=== PATIENT | female | born 1950 | race Caucasian/White ===

== ENCOUNTER → 2018-02-23 | Outpatient (CLI) | payer MEDICARE | END | disposition home or self-care (01) | LOC: CFH 13:11 | PROVIDERS: ATTEND Family Medicine | DX: N64.4 Mastodynia (principal); N63.10 Unspecified lump in the right breast, unspecified quadrant | CPT/HCPCS: 77066 ==

== ENCOUNTER → 2018-03-16 | Outpatient (CLI) | payer MEDICARE ==
[~2018-03-16] MED LIST: LIDOCAINE 1%, 20ML ONE; LIDOCAINE 1%-EPI 1:100K, 30ML ONE; SODIUM BICARBONATE 4.0%, 5ML ONE
== END | disposition home or self-care (01) ==
LOC: CFH 10:55
PROVIDERS: ATTEND Family Medicine
DX: N63.10 Unspecified lump in the right breast, unspecified quadrant (principal); R92.8 Other abnormal and inconclusive findings on diagnostic imaging of breast
CPT/HCPCS: 19083; 77065; 88305; J3490

== ENCOUNTER → 2018-03-29 | Outpatient (CLI) | payer MEDICARE ==
[~2018-03-29] MED LIST changes: +GADOBUTROL 10 MMOL/10 ML VIAL ONE; -LIDOCAINE 1%, 20ML ONE; -LIDOCAINE 1%-EPI 1:100K, 30ML ONE; -SODIUM BICARBONATE 4.0%, 5ML ONE
== END | disposition home or self-care (01) ==
LOC: CFH 13:55
PROVIDERS: ATTEND Family Medicine
DX: C50.811 Malignant neoplasm of overlapping sites of right female breast (principal)
CPT/HCPCS: A9585; C8908

== ENCOUNTER → 2018-04-16 | Outpatient (CLI) | payer MEDICARE ==
[~2018-04-16] MED LIST changes: +ALBU8.5H8 INH; +AMLO2.5T3 PO; +CHOL10003 PO; +CITA10TA4 PO; +CYAN10005 PO; -GADOBUTROL 10 MMOL/10 ML VIAL ONE; +HYDR12.58 PO; +MONT10TA9 PO; +MULT-658 PO; +OMEG-170 PO; +OMEP-110 PO; +OXYC-302 PO; +ROSU20TA PO; +vitamin c PO
[2018-04-16 13:02] LABS: BASOPHILS # (AUTO) 0.12 x10^3/uL (0-0.1); BASOPHILS % (AUTO) 1 % (0-1); EOSINOPHILS # (AUTO) 0.23 x10^3/uL (0-0.4); EOSINOPHILS % (AUTO) 3 % (1-7); LYMPHOCYTES # (AUTO) 2.47 x10^3/uL (1-3.4); LYMPHOCYTES % (AUTO) 30 % (22-44); MD NO; MEAN CORPUSCULAR HEMOGLOBIN 32.6 pg (27.0-34.8); MEAN CORPUSCULAR HGB CONC 34.3 g/dL (32.4-35.8); MEAN PLATELET VOLUME 8.6 fL (7.4-10.4); MONOCYTES # (AUTO) 0.89 x10^3/uL (0.2-0.8); MONOCYTES % (AUTO) 11 % (2-9); NEUTROPHILS # (AUTO) 4.61 x10^3/uL (1.8-6.8); NEUTROPHILS % (AUTO) 55 % (42-75); PLATELET COUNT 238 x10^3/uL (130-400); RED BLOOD COUNT 4.38 x10^6/uL (3.82-5.3); RED CELL DISTRIBUTION WIDTH 13.6 % (9.6-15.2)
[2018-04-16 13:14] LABS: ALANINE AMINOTRANSFERASE 39 U/L (12-78); ALBUMIN 3.5 g/dL (3.4-5.0); ANION GAP 8 mmol/L (5-15); CALCIUM 9.3 mg/dL (8.5-10.1); CHLORIDE 103 mmol/L (98-107)
[2018-04-16 13:17] LABS: ALKALINE PHOSPHATASE 43 U/L (45-117); BILIRUBIN,TOTAL 1.2 mg/dL (0.2-1.0); CREATININE 1.01 mg/dL (0.55-1.02); TOTAL PROTEIN 7.5 g/dL (6.4-8.2)
== END | disposition home or self-care (01) ==
LOC: STAR 11:12
PROVIDERS: ATTEND Surgery
DX: Z01.818 Encounter for other preprocedural examination (principal); C50.911 Malignant neoplasm of unspecified site of right female breast
CPT/HCPCS: 36415; 80053; 85025; 93005

== ENCOUNTER → 2018-04-20 | Outpatient (CLI) | payer MEDICARE | END | disposition home or self-care (01) | LOC: ROC 09:17 | PROVIDERS: ATTEND Radiology Radiation Oncology | DX: C50.911 Malignant neoplasm of unspecified site of right female breast (principal) | CPT/HCPCS: 99214; G0463 ==

== ENCOUNTER 2018-04-23 13:15 | Observation (INO) | payer MEDICARE ==
[2018-04-16 12:01] VITALS: BP 146/83
[~2018-04-23] VITALS: Ht 175.3 cm; Wt 88.9 kg
[~2018-04-23 13:15] MED LIST changes: -OXYC-302 PO
[2018-04-23] MEDS ORDERED: LACTATED RINGERS 1,000 ML IV SCH ×2 (13:56→21:30)
[2018-04-23] MEDS ORDERED: ACETAMINOPHEN 500 MG TABLET PO ONE (14:00)
[2018-04-23] MEDS ORDERED: ONDANSETRON ODT 8 MG PO ONE (14:00)
[2018-04-23] MEDS ORDERED: OXYcodone IR 5MG TABLET PO ONE (14:00)
[2018-04-23] MEDS ORDERED: GABAPENTIN 300 MG CAPSULE PO ONE (14:00)
[2018-04-23] MEDS ORDERED: LIDOCAINE-MPF 2%, 2ML ONE (14:51)
[2018-04-23] MEDS ORDERED: MIDAZOLAM 1 MG/ML, 2ML ONE (17:02)
[2018-04-23] MEDS ORDERED: FENTANYL PF 250 MCG/5ML ONE (17:02)
[2018-04-23] MEDS ORDERED: BACITRACIN 50,000 UNIT ONE (17:09)
[2018-04-23] MEDS ORDERED: CEFAZOLIN 1,000 MG ONE (17:09)
[2018-04-23] MEDS ORDERED: GENTAMICIN 80 MG/2 ML ONE (17:09)
[2018-04-23] MEDS ORDERED: METHYLENE BLUE 10 MG/ML 10ML ONE (17:09)
[2018-04-23] MEDS ORDERED: SCOPOLAMINE PATCH, 1.5MG PATCH.TD72 TD ONE (17:16)
[2018-04-23] MEDS ORDERED: ROCURONIUM 10MG/ML,5ML ONE (17:35)
[2018-04-23] MEDS ORDERED: GLYCOPYRROLATE 0.2MG/1ML, 5ML ONE (17:35)
[2018-04-23] MEDS ORDERED: EPHEDRINE 50 MG/ML, 1ML ONE (17:35)
[2018-04-23] MEDS ORDERED: NEOSTIGMINE 1 MG/ML, 10ML ONE (17:35)
[2018-04-23] MEDS ORDERED: PROPOFOL 10 MG/ML, 20ML ONE (17:35)
[2018-04-23] MEDS ORDERED: DEXAMETHASONE 4 MG/ML, 1ML ONE (17:35)
[2018-04-23] MEDS ORDERED: ISOSULFAN BLUE 10 MG/ML, 5ML IV ONE (17:50)
[2018-04-23] MEDS ORDERED: HALOPERIDOL 5 MG/ML IV PRN (18:30)
[2018-04-23] MEDS ORDERED: FENTANYL PF 100 MCG/2ML IV PRN ×2 (18:30→22:00)
[2018-04-23] MEDS ORDERED: ALBUTEROL SULFATE 2.5 MG/3 ML NPPB PRN ×2 (18:30→22:30)
[2018-04-23] MEDS ORDERED: HYDROmorphone 1 MG/ML, 1ML IV PRN (18:30)
[2018-04-23] MEDS ORDERED: LORazepam 2 MG/ML, 1ML IVPush PRN (18:30)
[2018-04-23] MEDS ORDERED: hydrALAzine 20 MG/ML, 1ML IV PRN (18:30)
[2018-04-23] MEDS ORDERED: OXYcodone 5 MG/5 ML ORAL.SOL UDC PO PRN (18:30)
[2018-04-23] MEDS ORDERED: PROMETHAZINE 25 MG/ML, 1ML IV PRN (18:30)
[2018-04-23] MEDS ORDERED: LABETALOL 5MG/ML, 20ML IV PRN (18:30)
[2018-04-23] MEDS ORDERED: BUPIVACAINE/PF-EPI 0.5% 1:200K ONE (18:41)
[2018-04-23] MEDS ORDERED: BUPIVACAINE/PF-EPI 0.5% 1:200K INFIL ONE (19:17)
[2018-04-23] MEDS ORDERED: FENTANYL PF 100 MCG/2ML ONE (20:20)
[2018-04-23] MEDS ORDERED: OXYcodone 5 MG/5 ML ORAL.SOL UDC ONE (20:21)
[2018-04-24 00:02] VITALS: BP 101/59
[2018-04-24] MEDS: CEFAZOLIN PMX 1GM/50ML 50 ML IV SCH ×2 (01:39→09:37)
[2018-04-24 04:20] VITALS: BP 105/69
[2018-04-24 05:40] LABS: BASOPHILS # (AUTO) 0.02 x10^3/uL (0-0.1); BASOPHILS % (AUTO) 0 % (0-1); EOSINOPHILS % (AUTO) 0 % (1-7); LYMPHOCYTES # (AUTO) 0.75 x10^3/uL (1-3.4); LYMPHOCYTES % (AUTO) 7 % (22-44); MD NO; MEAN CORPUSCULAR HEMOGLOBIN 31.9 pg (27.0-34.8); MEAN CORPUSCULAR HGB CONC 33.5 g/dL (32.4-35.8); MEAN CORPUSCULAR VOLUME 95.4 fL (80-100); MEAN PLATELET VOLUME 9.1 fL (7.4-10.4); MONOCYTES # (AUTO) 0.37 x10^3/uL (0.2-0.8); MONOCYTES % (AUTO) 3 % (2-9); NEUTROPHILS # (AUTO) 9.89 x10^3/uL (1.8-6.8); NEUTROPHILS % (AUTO) 90 % (42-75); PLATELET COUNT 197 x10^3/uL (130-400); RED BLOOD COUNT 3.95 x10^6/uL (3.82-5.3)
[2018-04-24 07:30] VITALS: BP 101/68
[2018-04-24] MEDS ORDERED: OMEPRAZOLE 20 MG CAPSULE.DR PO SCH (07:30)
[2018-04-24] MEDS ORDERED: HYDROCHLOROTHIAZIDE 12.5 MG CAPSULE PO SCH (09:00)
[2018-04-24] MEDS ORDERED: MONTELUKAST 10 MG TABLET PO SCH (09:00)
[2018-04-24] MEDS ORDERED: AMLODIPINE 2.5 MG TABLET PO SCH (09:00)
[2018-04-24] MEDS ORDERED: CITALOPRAM 10 MG TABLET PO SCH (09:00)
[2018-04-24] MEDS ORDERED: OXYC-302 PO ×2 (09:56→14:20)
[2018-04-24 13:03] VITALS: BP 99/66
[2018-04-24] MEDS: OXYcodone IR 5MG TABLET PO PRN ×2 (13:18→14:04)
[2018-04-24] MEDS ORDERED: ENOXAPARIN 40 MG/0.4 ML SQ SCH (18:00)
[2018-04-24] MEDS ORDERED: ATORVASTATIN 40 MG TABLET PO SCH (21:00)
== END 2018-04-24 14:45 | disposition home or self-care (01) ==
LOC: OUT 13:15 → 4NOR 21:12 → INTOOBSV 21:14 → 4NOR 21:14 → OUT 21:26 → DCLOUNGE 04-24 14:29
PROVIDERS: ADMIT Surgery; ATTEND Plastic Surgery
DX: C50.911 Malignant neoplasm of unspecified site of right female breast (principal); I10 Essential (primary) hypertension; E78.00 Pure hypercholesterolemia, unspecified; F31.9 Bipolar disorder, unspecified
CPT/HCPCS: 19303; 19357; 36415; 38525; 38792; 85025; 88305; 88307; 88333; 96365; 96366; A9541; C1762; G0378; J0690; J1100; J1580; J2250; J2704; J2710; J3010; J3490; J7120; Q0162; Q9968

== ENCOUNTER 2018-04-25 10:58 | Emergency (ER) | payer MEDICARE ==
[~2018-04-25] VITALS: Ht 175.3 cm; Wt 86.0 kg
[~2018-04-25 10:58] MED LIST changes: +OXYC-302 PO
[2018-04-25] MEDS ORDERED: KETOROLAC 30 MG/1 ML IVPush ONE (13:00)
[2018-04-25] MEDS ORDERED: morphine SULFATE 10 MG/ML, 1ML IVPush ONE (13:00)
[2018-04-25] MEDS ORDERED: ALBUTEROL SULFATE 2.5 MG/3 ML NPPB ONE (13:30)
[2018-04-25] MEDS ORDERED: ALBUTEROL SULFATE 2.5 MG/3 ML ONE (13:33)
[2018-04-25] MEDS ORDERED: KETOROLAC 30 MG/1 ML ONE (14:20)
[2018-04-25] MEDS ORDERED: KETOROLAC 30 MG/1 ML IM ONE (14:30)
[2018-04-25 14:36] VITALS: BP 110/57
== END 2018-04-25 16:05 | disposition home or self-care (01) ==
LOC: ED 12:03
DX: J02.9 Acute pharyngitis, unspecified (principal)
CPT/HCPCS: 70360; 71046; 87081; 87880; 93005; 94640; 96372; 99285; J1885; J7613

== ENCOUNTER → 2018-05-17 | Outpatient (CLI) | payer MEDICARE | END | disposition home or self-care (01) | LOC: ROC 08:34 | PROVIDERS: ATTEND Radiology Radiation Oncology | DX: Z08 Encounter for follow-up examination after completed treatment for malignant neoplasm (principal); C50.411 Malignant neoplasm of upper-outer quadrant of right female breast; Z88.2 Allergy status to sulfonamides | CPT/HCPCS: 99212; G0463 ==

== ENCOUNTER → 2018-05-24 | Outpatient (CLI) | payer MEDICARE | END | disposition home or self-care (01) | LOC: PETCFH 10:35 | PROVIDERS: ATTEND Specialist | DX: C50.111 Malignant neoplasm of central portion of right female breast (principal) | CPT/HCPCS: 78306; A9503 ==

== ENCOUNTER → 2018-06-01 | Outpatient (CLI) | payer MEDICARE ==
[~2018-06-01] MED LIST changes: +OMNIPAQUE 350 MG/ML, 100ML BOTTLE ONE
== END | disposition home or self-care (01) ==
LOC: CFH 07:10
PROVIDERS: ATTEND Specialist
DX: C50.111 Malignant neoplasm of central portion of right female breast (principal)
CPT/HCPCS: 71260; 74160; 93306; Q9967

== ENCOUNTER 2018-08-14 20:52 | Inpatient (IN) | payer MEDICARE ==
[~2018-08-14] VITALS: Ht 172.7 cm; Wt 92.5 kg
[~2018-08-14 20:52] MED LIST changes: -AMLO2.5T3 PO; +AMLO2.5T5 PO; -HYDR12.58 PO; +HYDROCHLOROTH12.5 MG PO; -OMNIPAQUE 350 MG/ML, 100ML BOTTLE ONE
--- NOTE | 2018-08-14 21:26 | NUR ---
pt bib remsa for increasing weakness following final chemo treatment on 08/08/2018. pt went to oncology yesterday for rehydration but is feeling worse today and is too weak to walk. hx r breast ca and r mastectomy. connected to all monitors. vss. hypotensive en route, sbp 88. normotensive upon arrival, sbp 110. iv schedule clerk. md at bedside for assessment. lab at bedside for draw. call ight within reach. awaiting results at this time.
[2018-08-14 21:50] LABS: INTERNATIONAL NORMALIZED RATIO 1.06 (0.93-1.1); PROTHROMBIN TIME 11.2 Seconds (9.6-11.5)
[2018-08-14 21:53] LABS: ALANINE AMINOTRANSFERASE 26 U/L (12-78); ALBUMIN 2.7 g/dL (3.4-5.0); ANION GAP 7 mmol/L (5-15); CHLORIDE 103 mmol/L (98-107); CREATININE 0.65 mg/dL (0.55-1.02)
[2018-08-14 21:58] LABS: ALKALINE PHOSPHATASE 43 U/L (45-117); BILIRUBIN,TOTAL 1.8 mg/dL (0.2-1.0); FREE T4 (FREE THYROXINE) 1.25 ng/dL (0.76-1.46); TOTAL PROTEIN 5.8 g/dL (6.4-8.2); TROPONIN I < 0.015 ng/mL (0.000-0.045)
--- NOTE | 2018-08-14 22:05 | NUR ---
LATE ENTRY: ASSUMED CARE OF PT. FROM TASK LESLEY OROURKE. PT. RESTING ON GURNEY WITH ALL MONITORS IN PLACE. VS UPDATED. PRINTING GRAY CLOTH TENDER TAKING IN BS COMMODE FOR URINE SAMPLE. PT. DENIES NEEDS. LAB AT BS FOR REDRAW.
[2018-08-14 22:30] LABS: MEAN CORPUSCULAR VOLUME 94.1 fL (80-100); MEAN PLATELET VOLUME 9.4 fL (7.4-10.4); PLATELET COUNT 122 x10^3/uL (130-400); RED BLOOD COUNT 3.23 x10^6/uL (3.82-5.3); RED CELL DISTRIBUTION WIDTH 16.5 % (9.6-15.2)
[2018-08-14 22:59] LABS: MD YES
[2018-08-14 23:06] LABS: EOS#(MANUAL) 0.04 x10^3/uL (0.0-0.4); EOS% (MANUAL) 6 % (1-7); LYMPH#(MANUAL) 0.36 x10^3/uL (1-3.4); LYMPHS% (MANUAL) 60 % (22-44); MONOS#(MANUAL) 0.14 x10^3/uL (0.3-2.7); MONOS% (MANUAL) 24 % (2-9); SEG#(MANUAL) 0.06 x10^3/uL (1.8-6.8); SEGS% (MANUAL) 10 % (42-75)
[2018-08-14 23:13] LABS: <PLATELET ESTIMATE> DECREASED; ANISOCYTOSIS 1+; LARGE PLATELETS 1+; MICROCYTOSIS 1+; OVALOCYTES 1+
--- NOTE | 2018-08-15 00:10 | NUR ---
THIS RN HAD CALLED LAB TO ASK ABOUT URINE SAMPLE THAT WAS SENT AT TIME OF COLLECTION IN COMPUTER. LAB REPORTS THEY DID NOT FIND THIS URINE SAMPLE IN TUBE SYSTEM. NEW URINE SAMPLE COLLECTED AND WALKED DOWN TO LAB. REPORT TO LESLEY HURTADO TO ASSUME PT. CARE.
[2018-08-15 00:15] LABS: CULTURE INDICATED? YES; MICROSCOPIC INDICATED
[2018-08-15] MEDS ORDERED: CEFTRIAXONE PMX 1GM/50ML 50 ML IV ONE (00:30)
[2018-08-15] MEDS ORDERED: CEFTRIAXONE PMX 1GM/50ML 50 ML ONE (00:32)
--- NOTE | 2018-08-15 00:54 | NUR ---
pt resting on gurney, isolation precautions maintained, iv abx infusing, pt denies needs at this time, spouse at bedside, call light within reach. report given to isaura crocker, awaiti transfer to floor Addendum: 08/15/18 at 0056 by VALENTIN monitors in place, pt refusing b/p to be taken at this time, isaura crocker updated and stated she will obtain b/p on pt arrival to floor.
[2018-08-15 01:30] VITALS: BP 101/62
[2018-08-15 02:00] VITALS: BP 137/77
[2018-08-15] MEDS: MEROPENEM 500 MG in SODIUM CHLORIDE 0.9% 100 ML IV SCH ×3 (02:15→17:08)
[2018-08-15] MEDS ORDERED: PROMETHAZINE 25 MG/ML, 1ML IM PRN (02:30)
[2018-08-15] MEDS ORDERED: morphine SULFATE 10 MG/ML, 1ML IVPush PRN (02:30)
[2018-08-15] MEDS ORDERED: ONDANSETRON 2MG/ML, 2ML IVPush PRN (02:30)
[2018-08-15] MEDS ORDERED: ACETAMINOPHEN 325 MG TABLET PO PRN (02:30)
[2018-08-15] MEDS: HEPARIN 5,000 UNITS/ML, 1ML SQ SCH ×3 (02:30→17:08)
[2018-08-15] MEDS ORDERED: POLYETHYLENE GLYCOL 17 GM PACKET PO PRN (02:30)
[2018-08-15] MEDS ORDERED: ALBUTEROL SULFATE 2.5 MG/3 ML HHN PRN (02:30)
[2018-08-15] MEDS ORDERED: hydrALAzine 20 MG/ML, 1ML IVPush PRN (02:30)
[2018-08-15] MEDS ORDERED: ONDANSETRON ODT 4 MG PO PRN (02:30)
[2018-08-15] MEDS ORDERED: DOCUSATE 100 MG CAPSULE PO PRN (02:30)
[2018-08-15] MEDS ORDERED: BISACODYL 10 MG SUPP PR PRN (02:30)
--- NOTE | 2018-08-15 02:39 | NUR ---
LATE ENTRY: EARLIER IN THE NIGHT PT. AND HER HAD ASKED THIS RN IF PT. HAD LEFT A PINK METAL CARD CASE ON THE AMBULANCE PT. WAS UNABLE TO FIND IT. THIS RN HELPED SEARCH ED ROOM AT THAT TIME. SEARCHED ALL PT. BELONGINGS AND WAS STILL UNABLE TO FINE. THIS RN CALLED [facility] AND THEY WERE ABLE TO FIGURE OUT THE AMBULANCE PT. WAS RODY IN TO ED ON; THEY WERE ALSO UNABLE TO LOCATE ANY ITEMS LEFT BEHIND. CALLED LESLEY JULIEN ON ONC TO UPDATE HER ON THIS SO PT. COULD BE UPDATED.
[2018-08-15 02:47] LABS: FREE T4 (FREE THYROXINE) 1.24 ng/dL (0.76-1.46); THYROID STIMULATING HORMONE 1.09 mIU/L (0.358-3.740)
[2018-08-15 02:55] LABS: HEMOGLOBIN A1C 6.2 % (4.2-6.3)
[2018-08-15] MEDS: SODIUM CHLORIDE 0.9% 1,000 ML IV SCH ×2 (03:58→14:12)
[2018-08-15] MEDS ORDERED: MAGNESIUM SULFATE PMX 2GM/50ML 50 ML IV ONE (07:00)
[2018-08-15] MEDS: CITALOPRAM 10 MG TABLET PO SCH (07:56)
[2018-08-15] MEDS: CYANOCOBALAMIN 1,000 MCG TABLET PO SCH (07:56)
[2018-08-15] MEDS: HYDROCHLOROTHIAZIDE 12.5 MG CAPSULE PO SCH ×2 (07:57→07:59)
[2018-08-15] MEDS: MULTIVITAMIN 1 TABLET PO SCH (07:57)
[2018-08-15] MEDS: MONTELUKAST 10 MG TABLET PO SCH ×2 (07:57→07:59)
[2018-08-15] MEDS: CHOLECALCIFEROL 1,000 UNIT TABLET PO SCH (07:58)
[2018-08-15] MEDS: OMEPRAZOLE 20 MG CAPSULE.DR PO SCH (07:58)
[2018-08-15 08:21] VITALS: BP 89/55
[2018-08-15] MEDS ORDERED: AMLODIPINE 2.5 MG TABLET PO SCH (09:00)
[2018-08-15 12:55] VITALS: BP 92/60
[2018-08-15] MEDS ORDERED: VANCOMYCIN PER PHARMACY MC PRN (14:00)
[2018-08-15] MEDS ORDERED: VANCOMYCIN PMX 1GM/200ML 200 ML IV ONE (14:00)
[2018-08-15] MEDS: HYDROCORTISONE CRM 0.5%, 30GM EXT PRN ×2 (14:17→16:21)
[2018-08-15] MEDS ORDERED: PHARMACOKINETIC CONSULTATION MC ONE (15:00)
[2018-08-15] MEDS ORDERED: PHARMACOKINETIC MONITORING MC PRN (15:00)
[2018-08-15] MEDS: VANCOMYCIN 1,700 MG in SODIUM CHLORIDE 0.9% 250 ML IV SCH (15:21)
[2018-08-15 20:00] VITALS: BP 98/62
[2018-08-15] MEDS: ATORVASTATIN 40 MG TABLET PO SCH (20:48)
[2018-08-16] MEDS: MEROPENEM 500 MG in SODIUM CHLORIDE 0.9% 100 ML IV SCH ×3 (01:41→19:46)
[2018-08-16 01:42] VITALS: BP 94/60
[2018-08-16] MEDS: HEPARIN 5,000 UNITS/ML, 1ML SQ SCH ×3 (01:42→19:41)
[2018-08-16 02:00] VITALS: BP 105/65
[2018-08-16 04:52] LABS: ALBUMIN 2.2 g/dL (3.4-5.0); ANION GAP 7 mmol/L (5-15); CHLORIDE 106 mmol/L (98-107); MEAN CORPUSCULAR HEMOGLOBIN 31.4 pg (27.0-34.8); MEAN CORPUSCULAR HGB CONC 33.2 g/dL (32.4-35.8); MEAN CORPUSCULAR VOLUME 94.4 fL (80-100); MEAN PLATELET VOLUME 9.6 fL (7.4-10.4); PLATELET COUNT 141 x10^3/uL (130-400); RED BLOOD COUNT 2.98 x10^6/uL (3.82-5.3); RED CELL DISTRIBUTION WIDTH 16.5 % (9.6-15.2)
[2018-08-16 04:56] LABS: ALANINE AMINOTRANSFERASE 22 U/L (12-78); ALKALINE PHOSPHATASE 37 U/L (45-117); BILIRUBIN,TOTAL 0.8 mg/dL (0.2-1.0); CHOL/HDL RATIO 2.6; CHOLESTEROL, TOTAL 105 mg/dL (140-239); HDL CHOL % 39 % (28-40); HDL CHOLESTEROL (DIRECT) 41 mg/dL (40-60); LDL CHOLESTEROL,CALCULATED 28 mg/dL (54-169); LDL/HDL RATIO 0.7 (0.5-3.0); TRIGLYCERIDES 181 mg/dL (50-200); VLDL CHOLESTEROL 36 mg/dL (0-25)
[2018-08-16 05:12] LABS: MD YES
[2018-08-16 05:20] LABS: ANISOCYTOSIS 1+; BAND#(MANUAL) 0.24 x10^3/uL; BANDS%(MANUAL) 4 % (0-7); EOS#(MANUAL) 0.06 x10^3/uL (0.0-0.4); EOS% (MANUAL) 1 % (1-7); LYMPH#(MANUAL) 1.42 x10^3/uL (1-3.4); LYMPHS% (MANUAL) 24 % (22-44); METAMYELOCYTES# (MANUAL) 0.06 x10^3/uL (0-0); METAMYELOCYTES% (MANUAL) 1 % (0-1); MICROCYTOSIS 1+; MONOS#(MANUAL) 1.77 x10^3/uL (0.3-2.7); MONOS% (MANUAL) 30 % (2-9); OVALOCYTES 1+; POLYCHROMASIA 1+; SEG#(MANUAL) 2.36 x10^3/uL (1.8-6.8); SEGS% (MANUAL) 40 % (42-75)
[2018-08-16 05:21] LABS: <PLATELET ESTIMATE> ADEQUATE; LARGE PLATELETS 1+
[2018-08-16 06:50] VITALS: BP 96/62
[2018-08-16] MEDS: MONTELUKAST 10 MG TABLET PO SCH (07:51)
[2018-08-16] MEDS: CYANOCOBALAMIN 1,000 MCG TABLET PO SCH (08:42)
[2018-08-16] MEDS: MULTIVITAMIN 1 TABLET PO SCH (08:42)
[2018-08-16] MEDS: CHOLECALCIFEROL 1,000 UNIT TABLET PO SCH (08:42)
[2018-08-16] MEDS: VANCOMYCIN 1,700 MG in SODIUM CHLORIDE 0.9% 250 ML IV SCH (08:42)
[2018-08-16] MEDS: OMEPRAZOLE 20 MG CAPSULE.DR PO SCH (08:42)
[2018-08-16 12:10] VITALS: BP 100/62
[2018-08-16 20:15] VITALS: BP 129/75
[2018-08-16] MEDS: CITALOPRAM 10 MG TABLET PO SCH (21:00)
[2018-08-16] MEDS: ATORVASTATIN 40 MG TABLET PO SCH (22:01)
[2018-08-17 01:13] VITALS: BP 100/64
[2018-08-17] MEDS: VANCOMYCIN 1,700 MG in SODIUM CHLORIDE 0.9% 250 ML IV SCH ×2 (03:04→21:51)
[2018-08-17] MEDS: MEROPENEM 500 MG in SODIUM CHLORIDE 0.9% 100 ML IV SCH ×3 (04:47→20:30)
[2018-08-17] MEDS: HEPARIN 5,000 UNITS/ML, 1ML SQ SCH ×3 (04:48→20:30)
[2018-08-17] MEDS: HYDROCORTISONE CRM 0.5%, 30GM EXT PRN (04:48)
[2018-08-17 07:40] VITALS: BP 116/69
[2018-08-17] MEDS: CYANOCOBALAMIN 1,000 MCG TABLET PO SCH (08:20)
[2018-08-17] MEDS: CHOLECALCIFEROL 1,000 UNIT TABLET PO SCH (08:20)
[2018-08-17] MEDS: OMEPRAZOLE 20 MG CAPSULE.DR PO SCH (08:20)
[2018-08-17] MEDS: CITALOPRAM 10 MG TABLET PO SCH ×2 (08:20→20:30)
[2018-08-17] MEDS: MULTIVITAMIN 1 TABLET PO SCH (08:20)
[2018-08-17] MEDS: MONTELUKAST 10 MG TABLET PO SCH (08:21)
[2018-08-17 13:50] VITALS: BP 118/73
[2018-08-17 19:47] VITALS: BP 134/68
[2018-08-17] MEDS: ATORVASTATIN 40 MG TABLET PO SCH (21:51)
[2018-08-18 00:22] VITALS: BP 111/65
[2018-08-18] MEDS: HEPARIN 5,000 UNITS/ML, 1ML SQ SCH ×2 (04:20→12:19)
[2018-08-18] MEDS: MEROPENEM 500 MG in SODIUM CHLORIDE 0.9% 100 ML IV SCH ×2 (04:21→12:19)
[2018-08-18 06:15] LABS: CLOSTRIDIUM DIFFICILE ANTIGEN NEGATIVE; CLOSTRIDIUM DIFFICILE TOXIN NEGATIVE (Negative)
[2018-08-18 07:20] VITALS: BP 103/63
[2018-08-18] MEDS: OMEPRAZOLE 20 MG CAPSULE.DR PO SCH (08:19)
[2018-08-18] MEDS: MONTELUKAST 10 MG TABLET PO SCH ×2 (09:00→09:11)
[2018-08-18] MEDS: MULTIVITAMIN 1 TABLET PO SCH (09:09)
[2018-08-18] MEDS: CHOLECALCIFEROL 1,000 UNIT TABLET PO SCH (09:09)
[2018-08-18] MEDS: CYANOCOBALAMIN 1,000 MCG TABLET PO SCH (09:09)
[2018-08-18] MEDS ORDERED: LOPERAMIDE 2 MG CAPSULE ONE (10:55)
[2018-08-18] MEDS ORDERED: LACTOBACILLUS CHEW TABLET ONE (10:55)
[2018-08-18] MEDS: LOPERAMIDE 2 MG CAPSULE PO PRN ×2 (10:56→13:01)
[2018-08-18 11:51] LABS: MEAN CORPUSCULAR HEMOGLOBIN 31.7 pg (27.0-34.8); MEAN CORPUSCULAR HGB CONC 33.6 g/dL (32.4-35.8); MEAN CORPUSCULAR VOLUME 94.4 fL (80-100); MEAN PLATELET VOLUME 8.7 fL (7.4-10.4); PLATELET COUNT 202 x10^3/uL (130-400); RED BLOOD COUNT 3.02 x10^6/uL (3.82-5.3); RED CELL DISTRIBUTION WIDTH 16.7 % (9.6-15.2)
[2018-08-18 11:54] LABS: ANION GAP 5 mmol/L (5-15); CHLORIDE 107 mmol/L (98-107)
[2018-08-18 12:02] LABS: MD YES
[2018-08-18 12:06] LABS: BAND#(MANUAL) 0.52 x10^3/uL; BANDS%(MANUAL) 2 % (0-7); BASOS#(MANUAL) 0.26 x10^3/uL (0-0.1); BASOS% (MANUAL) 1 % (0-1); EOS#(MANUAL) 0.26 x10^3/uL (0.0-0.4); EOS% (MANUAL) 1 % (1-7); LYMPH#(MANUAL) 1.03 x10^3/uL (1-3.4); LYMPHS% (MANUAL) 4 % (22-44); METAMYELOCYTES# (MANUAL) 0.52 x10^3/uL (0-0); METAMYELOCYTES% (MANUAL) 2 % (0-1); MONOS#(MANUAL) 1.03 x10^3/uL (0.3-2.7); MONOS% (MANUAL) 4 % (2-9); MYELOCYTES# (MANUAL) 1.03 x10^3/uL (0-0); MYELOCYTES% (MANUAL) 4 % (0-0); SEG#(MANUAL) 21.16 x10^3/uL (1.8-6.8); SEGS% (MANUAL) 82 % (42-75)
[2018-08-18 12:07] LABS: ANISOCYTOSIS 1+; MICROCYTOSIS 1+; OVALOCYTES 1+; POLYCHROMASIA 1+
[2018-08-18 12:08] LABS: <PLATELET ESTIMATE> ADEQUATE; LARGE PLATELETS 1+; TOXIC GRAN 1+
[2018-08-18 13:40] VITALS: BP 110/70
[2018-08-18] MEDS: VANCOMYCIN 1,700 MG in SODIUM CHLORIDE 0.9% 250 ML IV SCH (15:09)
[2018-08-18] MEDS ORDERED: LOPE2CAP PO (15:17)
[2018-08-18] MEDS ORDERED: ACID1TAB7 PO (15:17)
[2018-08-18] MEDS ORDERED: LACTOBACILLUS CHEW TABLET PO SCH (16:00)
== END 2018-08-18 17:15 | disposition home or self-care (01) | DRG 808 ==
LOC: ED 21:45 → EDIP 08-15 00:39 → 3NW 08-15 01:22
PROVIDERS: ADMIT Internal Medicine; ATTEND Internal Medicine
DX: D61.810 Antineoplastic chemotherapy induced pancytopenia (principal); E43 Unspecified severe protein-calorie malnutrition; N12 Tubulo-interstitial nephritis, not specified as acute or chronic; T45.1X5A Adverse effect of antineoplastic and immunosuppressive drugs, initial encounter; E78.5 Hyperlipidemia, unspecified; F32.9 Major depressive disorder, single episode, unspecified; I10 Essential (primary) hypertension; K21.9 Gastro-esophageal reflux disease without esophagitis; Z85.3 Personal history of malignant neoplasm of breast; Z90.12 Acquired absence of left breast and nipple; Z87.442 Personal history of urinary calculi; Z90.11 Acquired absence of right breast and nipple; Z90.49 Acquired absence of other specified parts of digestive tract; Z88.5 Allergy status to narcotic agent; Z88.8 Allergy status to other drugs, medicaments and biological substances; Z68.31 Body mass index [BMI] 31.0-31.9, adult
CPT/HCPCS: 36415; 71045; 80048; 80053; 80061; 80202; 81001; 83036; 83605; 83735; 84145; 84439; 84443; 84484; 85025; 85610; 87040; 87086; 87324; 93005; 96374; 99285; G0378; J0696; J1644; J2185; J2405; J3370; J3475; J7030; J7050

== ENCOUNTER → 2018-12-20 | Outpatient (CLI) | payer MEDICARE ==
[~2018-12-20] MED LIST changes: +ACID1TAB7 PO; +LOPE2CAP PO; -ROSU20TA PO; +ROSU20TA2 PO
== END | disposition home or self-care (01) ==
LOC: ROC 07:39
PROVIDERS: ATTEND Radiology Radiation Oncology
DX: Z08 Encounter for follow-up examination after completed treatment for malignant neoplasm (principal); C79.2 Secondary malignant neoplasm of skin; R53.83 Other fatigue; Z85.3 Personal history of malignant neoplasm of breast; Z88.5 Allergy status to narcotic agent; Z88.8 Allergy status to other drugs, medicaments and biological substances
CPT/HCPCS: G0463

== ENCOUNTER → 2019-01-09 | Outpatient (CLI) | payer MEDICARE | END | disposition home or self-care (01) | LOC: CFH 13:10 | PROVIDERS: ATTEND Specialist | DX: M85.88 Other specified disorders of bone density and structure, other site (principal); C50.111 Malignant neoplasm of central portion of right female breast | CPT/HCPCS: 77080 ==

== ENCOUNTER → 2019-01-21 | Outpatient (CLI) | payer MEDICARE | END | disposition home or self-care (01) | LOC: CFH 11:31 | PROVIDERS: ATTEND Radiology Radiation Oncology | DX: Z12.31 Encounter for screening mammogram for malignant neoplasm of breast (principal); Z85.3 Personal history of malignant neoplasm of breast; Z90.11 Acquired absence of right breast and nipple | CPT/HCPCS: 77063; 77067 ==

== ENCOUNTER 2020-02-07 14:16 | Outpatient (CLI) | payer MEDICARE ==
[~2020-02-07 14:16] MED LIST changes: +CYAN-27 PO; -CYAN10005 PO; +MONT10TA11 PO; -MONT10TA9 PO
== END 2020-02-07 23:59 | disposition home or self-care (01) ==
LOC: CFH 14:16
PROVIDERS: ATTEND Family Medicine
DX: Z12.31 Encounter for screening mammogram for malignant neoplasm of breast (principal)
CPT/HCPCS: 77063; 77067

== ENCOUNTER → 2021-02-08 | Outpatient (CLI) | payer MEDICARE ==
[~2021-02-08] MED LIST changes: -MONT10TA11 PO; +MONT10TA17 PO; -OXYC-302 PO; +OXYC1TAB14 PO
== END | disposition home or self-care (01) ==
LOC: CFH 14:11
PROVIDERS: ATTEND Internal Medicine Geriatric Medicine
DX: Z12.31 Encounter for screening mammogram for malignant neoplasm of breast (principal)
CPT/HCPCS: 77063; 77067